=== PATIENT | male | born 1940 | race Caucasian/White ===

== ENCOUNTER 2016-10-06 12:21 | Day surgery (SDC) | payer MEDICARE, BC ==
[~2016-10-06] VITALS: Ht 175.3 cm; Wt 92.2 kg
[~2016-10-06 12:21] MED LIST: ACTOS30 MG PO; ALPHA LIPOIC A200 M2 PO; ALPHA LIPOIC300 MG PO; ASPIRIN E.C. 8181 MG PO; B 12 PO; B-12 500 MCG PO; BENICAR HCT 12.1 TA1 PO; CIALIS5 MG PO; CoQ10; FISH OIL 500 M1 EAC1 PO; FISH OIL500 MG PO; GLUCOTROL 5M5 MG/TAB PO; GLUCOTROL5 M1 PO; JANUVIA100 MG PO; LIPITOR 10MG10 MG PO; LISINOPRIL5 MG PO; NITROSTAT0.4 MG/TAB SL; RESTASIS0.05% OP; ZETIA 10MG TAB10 MG PO
[2016-10-06 13:00] VITALS: BP 156/86; PULSE 63; TEMP 98.1
[2016-10-06] MEDS ORDERED: LIPITOR20 MG PO (13:03)
[2016-10-06] MEDS ORDERED: GLUCOTROL10 MG PO (13:05)
[2016-10-06] MEDS ORDERED: OMEGA Q PO (13:06)
[2016-10-06] MEDS ORDERED: ZINC PO (13:06)
[2016-10-06] MEDS ORDERED: FLOMAX 0.40.4 MG/CAP PO (13:06)
[2016-10-06] MEDS ORDERED: OSCAL 500 TAB500 MG PO (13:07)
[2016-10-06 15:00] VITALS: BP 117/70; PULSE 52; TEMP 98
[2016-10-06 15:15] VITALS: BP 111/71; PULSE 58
[2016-10-06 15:30] VITALS: BP 116/72; PULSE 55
[2016-10-06 15:37] VITALS: BP 104/61; PULSE 50
== END 2016-10-06 16:24 | disposition home or self-care (01) ==
LOC: SDCO 12:21
DX: Z12.11 Encounter for screening for malignant neoplasm of colon (principal); D12.2 Benign neoplasm of ascending colon; D12.5 Benign neoplasm of sigmoid colon; D12.8 Benign neoplasm of rectum; K63.5 Polyp of colon
CPT/HCPCS: OP; J2250; J3010; J7030

== ENCOUNTER → 2016-11-09 | Outpatient (CLI) | payer MEDICARE, BC ==
[~2016-11-09] MED LIST changes: +FLOMAX 0.40.4 MG/CAP PO; +GLUCOTROL10 MG PO; +LIPITOR20 MG PO; +OMEGA Q PO; +OSCAL 500 TAB500 MG PO; +ZINC PO
== END ==
LOC: SUN.DIA 11:10
DX: E11.9 Type 2 diabetes mellitus without complications (principal); Z68.29 Body mass index [BMI] 29.0-29.9, adult; Z71.3 Dietary counseling and surveillance; E78.5 Hyperlipidemia, unspecified; I10 Essential (primary) hypertension; E03.9 Hypothyroidism, unspecified

== ENCOUNTER → 2017-05-10 | Outpatient (CLI) | payer MEDICARE, BC | LOC: SUN.DIA 10:54 | DX: E11.9 Type 2 diabetes mellitus without complications (principal); E78.5 Hyperlipidemia, unspecified; I10 Essential (primary) hypertension; E03.9 Hypothyroidism, unspecified; Z68.28 Body mass index [BMI] 28.0-28.9, adult; Z71.3 Dietary counseling and surveillance | CPT/HCPCS: G0108 ==

== ENCOUNTER → 2017-11-08 | Outpatient (CLI) | payer MEDICARE, BC | LOC: SUN.DIA 10:57 | DX: E11.9 Type 2 diabetes mellitus without complications (principal); E78.5 Hyperlipidemia, unspecified; I10 Essential (primary) hypertension; E03.9 Hypothyroidism, unspecified; Z68.28 Body mass index [BMI] 28.0-28.9, adult; Z71.3 Dietary counseling and surveillance | CPT/HCPCS: G0108 ==

== ENCOUNTER → 2017-12-06 | Outpatient (CLI) | payer MEDICARE, BC | LOC: SUN.DIA 08:42 | DX: E11.9 Type 2 diabetes mellitus without complications (principal); E78.5 Hyperlipidemia, unspecified; I10 Essential (primary) hypertension; E03.9 Hypothyroidism, unspecified; Z68.28 Body mass index [BMI] 28.0-28.9, adult; Z71.3 Dietary counseling and surveillance | CPT/HCPCS: G0108 ==

== ENCOUNTER → 2018-01-06 | Outpatient (CLI) | payer MEDICARE, BC | LOC: SUN.DIA 10:09 | DX: E11.9 Type 2 diabetes mellitus without complications (principal); E78.5 Hyperlipidemia, unspecified; I10 Essential (primary) hypertension; E03.9 Hypothyroidism, unspecified; Z68.28 Body mass index [BMI] 28.0-28.9, adult; Z71.3 Dietary counseling and surveillance | CPT/HCPCS: G0108 ==

== ENCOUNTER → 2018-02-01 | Outpatient (CLI) | payer MEDICARE, BC | LOC: SUN.DIA 15:57 | DX: E11.9 Type 2 diabetes mellitus without complications (principal); E78.5 Hyperlipidemia, unspecified; I10 Essential (primary) hypertension; E03.9 Hypothyroidism, unspecified; Z68.29 Body mass index [BMI] 29.0-29.9, adult; Z71.3 Dietary counseling and surveillance | CPT/HCPCS: G0108 ==

== ENCOUNTER → 2018-02-24 | Outpatient (CLI) | payer MEDICARE, BC | LOC: SUN.DIA 12:55 | DX: E11.9 Type 2 diabetes mellitus without complications (principal); E78.5 Hyperlipidemia, unspecified; I10 Essential (primary) hypertension; E03.9 Hypothyroidism, unspecified; Z68.28 Body mass index [BMI] 28.0-28.9, adult; Z71.3 Dietary counseling and surveillance | CPT/HCPCS: G0108 ==

== ENCOUNTER → 2018-03-29 | Outpatient (CLI) | payer MEDICARE, BC | LOC: SUN.DIA 12:51 | DX: E11.9 Type 2 diabetes mellitus without complications (principal); E78.5 Hyperlipidemia, unspecified; I10 Essential (primary) hypertension; E03.9 Hypothyroidism, unspecified; Z68.28 Body mass index [BMI] 28.0-28.9, adult; Z71.3 Dietary counseling and surveillance | CPT/HCPCS: G0108 ==

== ENCOUNTER → 2018-07-04 | Outpatient (CLI) | payer MEDICARE, BC | LOC: SUN.DIA 10:59 | DX: E11.9 Type 2 diabetes mellitus without complications (principal); E78.5 Hyperlipidemia, unspecified; I10 Essential (primary) hypertension; E03.9 Hypothyroidism, unspecified | CPT/HCPCS: G0108 ==

== ENCOUNTER → 2018-07-11 | Outpatient (CLI) | payer MEDICARE, BC | LOC: SUN.DIA 14:02 | DX: E11.9 Type 2 diabetes mellitus without complications (principal); E78.5 Hyperlipidemia, unspecified; I10 Essential (primary) hypertension; E03.9 Hypothyroidism, unspecified | CPT/HCPCS: G0108 ==

== ENCOUNTER → 2018-08-04 | Outpatient (CLI) | payer MEDICARE, BC | LOC: SUN.DIA 15:39 | DX: E11.9 Type 2 diabetes mellitus without complications (principal); E78.5 Hyperlipidemia, unspecified; I10 Essential (primary) hypertension; E03.9 Hypothyroidism, unspecified | CPT/HCPCS: G0108 ==

== ENCOUNTER → 2019-02-02 | Outpatient (CLI) | payer MEDICARE, BC | LOC: SUN.DIA 10:52 | DX: E11.9 Type 2 diabetes mellitus without complications (principal); E78.5 Hyperlipidemia, unspecified; E03.9 Hypothyroidism, unspecified; I10 Essential (primary) hypertension | CPT/HCPCS: G0108 ==

== ENCOUNTER → 2019-05-08 | Outpatient (CLI) | payer MEDICARE, BC | LOC: DIA.ED 12:40 | DX: E11.9 Type 2 diabetes mellitus without complications (principal); E78.5 Hyperlipidemia, unspecified; I10 Essential (primary) hypertension; E03.9 Hypothyroidism, unspecified | CPT/HCPCS: G0108 ==

== ENCOUNTER 2022-04-02 09:28 | Day surgery (SDC) | payer MEDICARE, BC ==
[~2022-04-02] VITALS: Ht 175.3 cm; Wt 82.3 kg
[2022-04-02 09:56] VITALS: BP 149/87; PULSE 69; TEMP 97.9
[2022-04-02] MEDS ORDERED: GLUCOPHAGE1000 MG PO (10:02)
[2022-04-02] MEDS ORDERED: HYZAAR 12.5 MG-1 TAB PO (10:02)
[2022-04-02] MEDS ORDERED: RESTASIS MULTI5.5 ML OP (10:03)
[2022-04-02] MEDS ORDERED: TRULICITY0.75 MG/0. SQ (10:03)
[2022-04-02 11:15] VITALS: BP 107/76; PULSE 65; TEMP 98.1
--- NOTE | 2022-04-02 11:15 | NUR ---
PATIENT RETURNS TO ROOM 5 VIA CART. ASSIST X 2 TO CHAIR. AT BEDSIDE. VITAL SIGNS WNL. PATIENT REQUESTS WATER AND APPLESAUCE. DOCTOR AT BEDSIDE. WILL CONTINUE TO MONITOR.
[2022-04-02 11:30] VITALS: BP 124/70; PULSE 54
--- NOTE | 2022-04-02 11:30 | NUR ---
PATIENT IS MORE AWAKE AND COMFORTABLE. VITAL SIGNS WNL. DENIES ANY PAIN OR NAUSEA. IV REMOVED. AT BEDSIDE. WILL CONTINUE TO MONITOR.
[2022-04-02 11:45] VITALS: BP 146/78; PULSE 52
--- NOTE | 2022-04-02 11:45 | NUR ---
PATIENT IS ALERT AND READY FOR DISCHARGE. VITAL SIGNS WNL. DISCHARGE INSTRUCTIONS REVIEWED. WILL DISCHARGE SOON HE GETS DRESSED.
== END 2022-04-02 12:00 | disposition home or self-care (01) ==
LOC: SDCO 09:28
DX: Z12.11 Encounter for screening for malignant neoplasm of colon (principal); E11.9 Type 2 diabetes mellitus without complications; C44.90 Unspecified malignant neoplasm of skin, unspecified; Z79.899 Other long term (current) drug therapy; Z79.84 Long term (current) use of oral hypoglycemic drugs; Z79.82 Long term (current) use of aspirin
CPT/HCPCS: J2704; J7120